=== PATIENT | male | born 1975 ===

== ENCOUNTER 2016-11-06 09:57 | Inpatient (IN) | payer OTHER ==
[2016-11-06 10:00] VITALS: BMI 25.7
--- NOTE | 2016-11-06 10:37 | ED PDOC ---
Lower Extremity Pain/Injury Time Seen by Provider: 11/06/16 10:19 Chief Complaint (Nursing): Lower Extremity Problem/Injury Chief Complaint (Provider): Left leg injury History Per: Patient Additional Complaint(s): 41-year-old male with no past medical history presents with pain to left knee, tib/fib, ankle and foot status post trip and fall. Patient denies head injury or loss of consciousness. He denies dizziness or syncope prior to fall. He states he is unable to bear weight on left lower extremity. Injury occurred just prior to arrival. Past Medical History Reviewed: Historical Data, Nursing Documentation, Vital Signs Vital Signs: Last Vital Signs Temp 98.0 F 11/06/16 09:59 Pulse 89 11/06/16 09:59 Resp 16 11/06/16 09:59 BP 133/110 H 11/06/16 09:59 Pulse Ox 100 11/06/16 09:59 - Medical History PMH: No Chronic Diseases - Surgical History Surgical History: No Surg Hx - Family History Family History: States: No Known Family Hx - Living Arrangements Living Arrangements: With Family - Social History Current smoker - smoking cessation education provided: Yes ("sometimes") Alcohol: None Drugs: Denies - Home Medications Home Medications: Ambulatory Orders Medication Instructions Recorded No Known Home Med [No Known Home 02/11/15 Med] - Allergies Allergies/Adverse Reactions: Allergies Allergy/AdvReac Type Severity Reaction Status Date / Time No Known Allergies Allergy Verified 11/06/16 10:13 Wells Criteria for PE - Wells Criteria for Pulmonary Embolism Clinical Signs and Symptoms of DVT: No P.E is #1 Diagnosis, or Equally Likely: No Heart Rate >100: No Immobilization at least 3 days;Surgery previous 4 weeks: No Previous, objectively diagnosed PE or DVT: No Hemoptysis: No Malignancy w/treatment within 6 months, or palliative: No Total Score: 0 Review of Systems ROS Statement: Except As Marked, All Systems Reviewed And Found Negative Musculoskeletal: Positive for: Other (left leg injury s/p accidental fall this morning) Physical Exam - Reviewed Nursing Documentation Reviewed: Yes Vital Signs Reviewed: Yes - Physical Exam Appears: Positive for: Well, Non-toxic, Uncomfortable (complains of pain) Eye Exam: Positive for: Normal appearance Cardiovascular/Chest: Positive for: Regular Rate, Rhythm Respiratory: Positive for: Normal Breath Sounds. Negative for: Respiratory Distress Extremity: Positive for: Other (Diffuse tenderness to left knee, tib-fib, ankle and foot region, decreased range of motion of left foot and ankle, no obvious bony deformity, normal distal sensation, palpable DP pulse) Neurologic/Psych: Positive for: Alert, Oriented - Laboratory Results Result Diagrams: 11/06/16 14:53 11/06/16 14:53 - ECG Interpretation Of ECG: NSR 84 bpm, no acute finding, reviewed by PA and ED attending O2 Sat by Pulse Oximetry: 100 Pulse Ox Interpretation: Normal - Other Rad Left foot and ankle x-rays X-Ray: Interpreted by Me, Viewed By Me X-Ray Interpretation: calcaneal fracture bedside chest X-Ray: Interpreted by Me, Viewed By Me X-Ray Interpretation: no acute finding Left tib/fib/knee/femur, hip and pelvis x-rays X-Ray: Interpreted by Me, Viewed By Me X-Ray Interpretation: no fx, no dis CT left foot X-Ray: Read By Radiologist X-Ray Interpretation: see below Medical Decision Making Medical Decision Makin41 year old male with left leg injury Plan: X-rays pelvis, left hip, femur, knee, tib/fib, ankle and foot PO motrin Labs CXR EKG Calcaneal fracture noted. Podiatry resident Lena Ochoa at bedside to see patient, she states to order CT of left foot. Patient will admitted and taken to OR tomorrow. Splint applied by podiatry resident. CT left foot: BONES: There is a comminuted fracture of the calcaneus with dominant fracture line extending from the inferior lateral calcaneal cortical margin superiorly and diverging into the middle and posterior subtalar facets. Talus and ankle mortise are intact. The distal fibula is intact. Unremarkable. No dislocation. No degenerative changes. Patient has no PMD, will be admitted to [facility] service, case was discussed with Dr. Marsh, resident. Patient is aware of and agrees with admission. Disposition - Clinical Impression Clinical Impression: Calcaneal fracture - Patient ED Disposition Is Patient to be Admitted: Yes - Disposition Disposition Time: 17:01 Condition: FAIR - Pt Status Changed To: Hospital Disposition Of: Inpatient - Admit Certification Admit to Inpatient:: After my assessment, the patient will require hospitalization for at least two midnights. This is because of the severity of symptoms shown, intensity of services needed, and/or the medical risk in this patient being treated as an outpatient. - POA Present On Arrival: None Results - Lab Results Lab Results: 11/06/16 14:53 WBC 14.8 H RBC 5.11 Hgb 15.6 Hct 47.0 MCV 92.0 MCH 30.5 MCHC 33.2 RDW 13.4 Plt Count 305 MPV 8.8 Neut % (Auto) 69.1 Lymph % (Auto) 22.1 [place] % (Auto) 7.0 Eos % (Auto) 1.2 Baso % (Auto) 0.6 Neut # 10.3 H Lymph # 3.3 [place] # 1.0 H Eos # 0.2 Baso # 0.1 PT 10.5 INR 1.01 APTT 25.7 Sodium 143 Potassium 4.0 Chloride 103 Carbon Dioxide 24 Anion Gap 20 BUN 17 Creatinine 0.8 Est GFR ( Amer) > 60 Est GFR (Non-Af Amer) > 60 Random Glucose 89 Calcium 9.7 Total Bilirubin 0.6 AST 36 ALT 40 Alkaline Phosphatase 88 Total Protein 8.3 H Albumin 4.5 Globulin 3.8 Albumin/Globulin Ratio 1.2
--- NOTE | 2016-11-06 12:28 | CP.PCM.CON ---
History of Present Illness - History of Present Illness History of Present Illness: 41 year old male with no PMHx presents to ED after he tripped and fell today. He states that he was walking and fell on the curb of the side walk. He was unable to walk afterwards and was taken to [facility] by ambulance. He denies hitting his head. He does have 10/10 pain on the left foot. He denies any n/v/ f/c/sob/cp. His wifes phone number is [phone] Past Patient History - Past Social History Alcohol: None Drugs: Denies - CARDIAC Hx Hypertension: No - PULMONARY Hx Tuberculosis: No - NEUROLOGICAL Hx Seizures: No - HEMATOLOGICAL/ONCOLOGICAL Hx Human Immunodeficiency Virus (HIV): No - GENITOURINARY/GYNECOLOGICAL Hx Sexually Transmitted Disorders: No - PSYCHIATRIC Hx Substance Use: No Meds Allergies/Adverse Reactions: Allergies Allergy/AdvReac Type Severity Reaction Status Date / Time No Known Allergies Allergy Verified 11/06/16 10:13 Physical Exam - Constitutional Appears: Well, Non-toxic, No Acute Distress - Extremities Exam Additional comments: Vasc: DP and PT pulses palpable b/l. CFT < 3 seconds to all digits b/l. SKin temperature warm to warm from proximal to distal b/l. Neuro: Gross sensation intact b/l. Derm: Ecchymosis noted to the medial aspect of the left calcaneus. Non-pitting edema noted to the left foot and ankle. No open lesions noted. Ortho:Pain on palpation of the left calcaneus. Patient is able to wiggle toes and DF and PF ankle - Neurological Exam Neurological exam: Alert, Oriented x3 - Psychiatric Exam Psychiatric exam: Normal Affect, Normal Mood Results - Vital Signs Recent Vital Signs: Last Vital Signs Temp 98.0 F 11/06/16 09:59 Pulse 89 11/06/16 09:59 Resp 16 11/06/16 09:59 BP 133/110 H 11/06/16 09:59 Pulse Ox 100 11/06/16 10:39 - Labs Result Diagrams: 11/06/16 14:53 11/06/16 14:53 Assessment & Plan - Assessment and Plan (Free Text) Assessment: 41 year old male with left calcaneal fracture due to trauma Plan: Patient examined and evaluate Chart and vitals reviewed Discussed in detail with attending, Dr. Cordero Radiographs review-calcaneal fracture noted CT reviewed- communited fracture of the calcaneus noted Patient placed in modified brito compressive dressing with posterior splint Patient to keep dressing clean, dry, intac Patient to remain non-WB to LLE with crutches Lab, EKG, chest xray obtained- medical optimization in chart Patient to be NPO 8 hours prior to surgery Patient to OR tomorrow night around 5:30 for add on case, ORIF Left calcaneus Pain medication per primary team Podiatry will continue to follow patient while in house
--- NOTE | 2016-11-06 14:20 | CT ---
PROCEDURE: CT of the Left ankle. HISTORY: trauma, assess calcaneal fracture COMPARISON: None available. None TECHNIQUE: Contiguous axial images of the left ankle were obtained. Coronal and sagittal reformats were generated. Radiation dose [address] exam was performed using one or more of the following dose reduction techniques: Automated exposure control, adjustment of the mA and/or kV according to patient size, and/or use of iterative reconstruction technique. FINDINGS: BONES: There is a comminuted fracture of the calcaneus with dominant fracture line extending from the inferior lateral calcaneal cortical margin superiorly and diverging into the middle and posterior subtalar facets. Talus and ankle mortise are intact. The distal fibula is intact. Unremarkable. No dislocation. No degenerative changes. SOFT TISSUES: Unremarkable. IMPRESSION: Comminuted fracture of the calcaneus.
[2016-11-06 15:29] LABS: BASO # 0.1 K/uL (0.0-0.2); BASO % 0.6 % (0.0-2.0); EOS # 0.2 K/uL (0.0-0.7); EOS % 1.2 % (0.0-4.0); LYMPH # 3.3 K/uL (1.0-4.3); LYMPH % 22.1 % (20.0-40.0); MEAN CORPUSCULAR HEMOGLOBIN 30.5 pg (27.0-31.0); MEAN CORPUSCULAR HGB CONC 33.2 g/dL (33.0-37.0); MEAN PLATELET VOLUME 8.8 fl (7.2-11.7); NEUT # 10.3 K/uL (1.8-7.0); NEUT % 69.1 % (50.0-75.0); RED CELL DISTRIBUTION WIDTH 13.4 % (11.5-14.5); WHITE BLOOD COUNT 14.8 K/uL (4.8-10.8)
[2016-11-06 15:43] LABS: PARTIAL THROMBOPLASTIN TIME 25.7 SECONDS (23.3-32.5)
[2016-11-06 16:15] LABS: ALB/GLOB RATIO 1.2 (1.0-2.1); ALKALINE PHOSPHATASE 88 U/L (38-126); ALT/SGPT 40 U/L (21-72); AST/SGOT 36 U/L (17-59); BILIRUBIN,TOTAL 0.6 mg/dl (0.2-1.3); BLOOD UREA NITROGEN 17 mg/dl (9-20); CALCIUM 9.7 mg/dL (8.4-10.2); CARBON DIOXIDE 24 mmol/L (22-30); CHLORIDE 103 mmol/L (98-107); GFR AFRICAN-AMERICAN > 60; GLUCOSE,RANDOM 89 mg/dL (75-110); SODIUM 143 mmol/l (132-148); TOTAL PROTEIN 8.3 G/DL (6.3-8.2)
--- NOTE | 2016-11-06 16:23 | RAD ---
PROCEDURE: Left Foot Radiographs. HISTORY: trauma COMPARISON: None. FINDINGS: BONES: Complex, comminuted calcaneal fracture. Fracture fragments is the plantar and ventral aspects, articular surfaces identified. JOINTS: Normal. SOFT TISSUES: Soft tissue swelling attests to the acuity of the fracture. OTHER FINDINGS: None. IMPRESSION: Acute, comminuted left calcaneal fracture.
--- NOTE | 2016-11-06 16:35 | RAD ---
PROCEDURE: Left Ankle Radiographs. HISTORY: trauma COMPARISON: November 06, 2016. CT lower extremity. Summary of findings on the comparison examination: Comminuted fracture of the calcaneus. FINDINGS: BONES: Calcaneal fracture. The fracture is incompletely characterized, displaying comminution and intra-articular extension. JOINTS: Normal. No osteoarthritis. Ankle mortise maintained. Talar dome intact SOFT TISSUES: Normal. OTHER FINDINGS: None. IMPRESSION: Comminuted fracture of the calcaneus.
--- NOTE | 2016-11-06 16:36 | RAD ---
PROCEDURE: Left tibia and fibula HISTORY: trauma COMPARISON: November 06, 2016. TECHNIQUE: Standard protocol for this study/examination. FINDINGS: Unremarkable tibia and fibula. Documentation of known calcaneal fracture. IMPRESSION: No acute findings related to/accounting for the clinical presentation. Incidental finding(s): Incomplete visualization common characterisation known common documented comminuted calcaneal fracture. Concordant results with the preliminary interpretation rendered by the emergency department physician procedure.
--- NOTE | 2016-11-06 16:39 | RAD ---
PROCEDURE: Left Knee Radiographs. HISTORY: Posttraumatic pain COMPARISON: None. FINDINGS: BONES: Normal. No fracture. JOINTS: Normal. No osteoarthritis. JOINT EFFUSION: None. OTHER FINDINGS: None. IMPRESSION: No acute findings related to/accounting for the clinical presentation. Concordant results with the preliminary interpretation rendered by the emergency department physician procedure.
--- NOTE | 2016-11-06 16:43 | CP.PCM.HP ---
History of Present Illness - History of Present Illness History of Present Illness: Patient 41 y/o male no significant pmhx of came to ER after he fall while he was walking on sidewalk nd twisted her left foot . patient started c/o of pain 03/06 in calcaneous area. 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 ER : Ct of left mali multiplr commute calcaneous Fx Motrin 600 mg po once cbc. cmp CXT EKG PMHx: none PSHx: none ALL: none MEDs: none Present on Admission - Present on Admission Any Indicators Present on Admission: No Review of Systems - Review of Systems Review of Systems: as per HPI Past Patient History - Past Social History Alcohol: None Drugs: Denies - CARDIAC Hx Hypertension: No - PULMONARY Hx Tuberculosis: No - NEUROLOGICAL Hx Seizures: No - HEMATOLOGICAL/ONCOLOGICAL Hx Human Immunodeficiency Virus (HIV): No - GENITOURINARY/GYNECOLOGICAL Hx Sexually Transmitted Disorders: No - PSYCHIATRIC Hx Substance Use: No Meds Allergies/Adverse Reactions: Allergies Allergy/AdvReac Type Severity Reaction Status Date / Time No Known Allergies Allergy Verified 11/06/16 10:13 Physical Exam - Constitutional Appears: No Acute Distress - Head Exam Head Exam: NORMAL INSPECTION - Eye Exam Eye Exam: Normal appearance - ENT Exam ENT Exam: Mucous Membranes Moist - Respiratory Exam Respiratory Exam: Clear to Auscultation Bilateral - Cardiovascular Exam Cardiovascular Exam: REGULAR RHYTHM, RRR, +S1, +S2. absent: JVD - GI/Abdominal Exam GI & Abdominal Exam: Normal Bowel Sounds, Soft - Extremities Exam Extremities exam: Positive for: normal capillary refill, pedal pulses present. Negative for: calf tenderness Additional comments: left leg immobilized - Neurological Exam Neurological exam: Alert, Oriented x3 - Psychiatric Exam Psychiatric exam: Normal Affect, Normal Mood - Skin Skin Exam: Normal Color Results - Vital Signs Recent Vital Signs: Last Vital Signs Temp 98.0 F 11/06/16 09:59 Pulse 81 11/06/16 15:40 Resp 18 11/06/16 15:40 BP 136/90 11/06/16 15:40 Pulse Ox 100 11/06/16 15:42 - Labs Result Diagrams: 11/06/16 14:53 11/06/16 14:53 Labs: Laboratory Results - last 24 hr 11/06/16 14:53 WBC 14.8 H RBC 5.11 Hgb 15.6 Hct 47.0 MCV 92.0 MCH 30.5 MCHC 33.2 RDW 13.4 Plt Count 305 MPV 8.8 Neut % (Auto) 69.1 Lymph % (Auto) 22.1 [place] % (Auto) 7.0 Eos % (Auto) 1.2 Baso % (Auto) 0.6 Neut # 10.3 H Lymph # 3.3 [place] # 1.0 H Eos # 0.2 Baso # 0.1 PT 10.5 INR 1.01 APTT 25.7 Sodium 143 Potassium 4.0 Chloride 103 Carbon Dioxide 24 Anion Gap 20 BUN 17 Creatinine 0.8 Est GFR ( Amer) > 60 Est GFR (Non-Af Amer) > 60 Random Glucose 89 Calcium 9.7 Total Bilirubin 0.6 AST 36 ALT 40 Alkaline Phosphatase 88 Total Protein 8.3 H Albumin 4.5 Globulin 3.8 Albumin/Globulin Ratio 1.2 Assessment & Plan (1) Calcaneal fracture Assessment and Plan: Admit to med/surg VS q shift regular diet percocet 5/325 mg PO q 6hr if severe pain Manual Plate Filler consulted CT: Comminuted fracture of the calcaneus. OR tomorrow at 5 :00pm NPO after breakfast tomorrow CXR reviewed : No active disease cbc/ CMp reviewed Patient is optimized for SX . Status: Acute (2) DVT prophylaxis Assessment and Plan: SCD Status: Acute
--- NOTE | 2016-11-06 16:46 | RAD ---
HISTORY: Medical clearance COMPARISON: No prior. FINDINGS: LUNGS: No active pulmonary disease. PLEURA: No significant pleural effusion identified, no pneumothorax apparent. CARDIOVASCULAR: No radiographic findings to suggest acute or significant cardiovascular disease. OSSEOUS STRUCTURES: No significant abnormalities. VISUALIZED UPPER ABDOMEN: Normal. OTHER FINDINGS: None. IMPRESSION: No active disease.
--- NOTE | 2016-11-06 16:55 | RAD ---
PROCEDURE: Pelvis, left hip HISTORY: trauma COMPARISON: None TECHNIQUE: Standard protocol for this study/examination. FINDINGS: There are no osseous abnormalities to suggest fracture. The pelvic ring is intact. Preserved femoral-acetabular relationship. Negative study for protrusio, subluxation or dislocation. Degenerative changes: None. IMPRESSION: No acute findings related to/accounting for the clinical presentation.
--- NOTE | 2016-11-06 16:56 | RAD ---
PROCEDURE: Left femur HISTORY: trauma COMPARISON: November 06, 2016. TECHNIQUE: Standard protocol for this study/examination. FINDINGS: No significant/acute osseous, articular or soft tissue abnormalities. IMPRESSION: No significant or acute findings to account for/ related to the clinical presentation.
--- NOTE | 2016-11-06 21:19 | CARD ---
APPROVED REPORT EKG Measurement Heart [id number] <Conclusion> Normal sinus rhythm Normal ECG
[2016-11-07] MEDS: Sodium Chloride 0.9% 1,000 ML IV SCH ×2 (06:42→16:36)
--- NOTE | 2016-11-07 07:54 | CP.PCM.PN ---
Subjective - Date & Time of Evaluation Date of Evaluation: 11/07/16 Time of Evaluation: 07:54 - Subjective Subjective: 41 year old male was seen resting comfortably at bedside regarding left calcaneus fracture. Patient is AAOx3, NAD. He states that he is having some pain and requests some pain medication. He is aware he is going for surgery this evening around 5:30 pm. He states he is aware he needs to be NPO after 9 am. Objective - Vital Signs/Intake and Output Vital Signs (last 24 hours): Temp Pulse Resp BP Pulse Ox 98.0 F 62 20 136/90 100 11/06/16 09:59 11/06/16 16:27 11/06/16 16:27 11/06/16 15:40 11/06/16 17:03 - Medications Medications: Current Medications Sodium Chloride (Sodium Chloride 0.9%) 1,000 mls @ 100 mls/hr IV .Q10H ESTEFANY Last Admin: 11/07/16 06:42 Dose: 100 mls/hr Oxycodone/Acetaminophen (Percocet 5/325 Mg Tab) 1 tab PO Q6 PRN PRN Reason: Pain, moderate (4-7) Stop: 11/09/16 16:27 - Labs Labs: 11/06/16 14:53 11/06/16 14:53 PT 10.5 SECONDS (9.6-11.2) 11/06/16 14:53 INR 1.01 (0.92-1.08) 11/06/16 14:53 APTT 25.7 SECONDS (23.3-32.5) 11/06/16 14:53 - Constitutional Appears: Well, Non-toxic, No Acute Distress - Extremities Exam Additional comments: CFT < 3 seconds to all digits on the left Posterior splint C/D/I to LLE - Neurological Exam Neurological Exam: Alert, Awake, Oriented x3 - Psychiatric Exam Psychiatric exam: Normal Affect, Normal Mood Assessment and Plan - Assessment and Plan (Free Text) Assessment: 41 year old male with left calcaneal fracture due to trauma Plan: Patient examined and evaluated Chart, labs, vitals reviewed Discussed in detail with attending, Dr. Cordero Medical optimization in chart To OR tonight at 5:30 pm NPO after 9 am Patient was explained procedure and post-op course No guarantees were made Patient understands risk, benefits, complications of procedure
[2016-11-07] MEDS: Oxycodone/Acetaminophen 5/325 mg Tab PO PRN (08:40)
--- NOTE | 2016-11-07 09:31 | CP.PCM.PN ---
Subjective - Date & Time of Evaluation Date of Evaluation: 11/07/16 Time of Evaluation: 07:10 - Subjective Subjective: The patient is a 41 y/o man w/ no significant pmhx presented to ED after he fell while walking on sidewalk and twisted his left foot. The patient was seen this morning. There are no acute events overnight. The patient is not in acute distress. The patient's pain is controlled with medication, PO percocet. The patient is aware that surgery will be at 17:30 today and to not eat anything after 09:00 this morning. The patient's left leg is wrapped in cast. The patient denies headaches, dizziness, chest pain, dyspnea, abdominal pain, nausea, vomiting, diarrhea, dysuria, and fevers. Objective - Vital Signs/Intake and Output Vital Signs (last 24 hours): Temp Pulse Resp BP Pulse Ox 98.2 F 79 20 134/86 96 11/07/16 08:34 11/07/16 08:34 11/07/16 08:34 11/07/16 08:34 11/07/16 08:34 - Medications Medications: Current Medications Sodium Chloride (Sodium Chloride 0.9%) 1,000 mls @ 100 mls/hr IV .Q10H ESTEFANY Last Admin: 11/07/16 06:42 Dose: 100 mls/hr Oxycodone/Acetaminophen (Percocet 5/325 Mg Tab) 1 tab PO Q6 PRN PRN Reason: Pain, moderate (4-7) Stop: 11/09/16 16:27 Last Admin: 11/07/16 08:40 Dose: 1 tab - Labs Labs: 11/06/16 14:53 11/06/16 14:53 PT 10.5 SECONDS (9.6-11.2) 11/06/16 14:53 INR 1.01 (0.92-1.08) 11/06/16 14:53 APTT 25.7 SECONDS (23.3-32.5) 11/06/16 14:53 - Constitutional Appears: No Acute Distress - Head Exam Head Exam: ATRAUMATIC, NORMOCEPHALIC - Eye Exam Eye Exam: EOMI Pupil Exam: PERRL - ENT Exam ENT Exam: Mucous Membranes Moist - Respiratory Exam Respiratory Exam: Clear to Ausculation Bilateral. absent: Accessory Muscle Use , Chest Wall Tenderness, Decreased Breath Sounds, Prolonged Expiratory Phase, Rales, Rhonchi, Wheezes, Respiratory Distress, Stridor - Cardiovascular Exam Cardiovascular Exam: REGULAR RHYTHM. absent: Tachycardia - GI/Abdominal Exam GI & Abdominal Exam: Soft, Normal Bowel Sounds. absent: Distended, Tenderness - Extremities Exam Extremities Exam: Normal Capillary Refill, Tenderness. absent: Calf Tenderness Additional comments: left lower leg immobilized in cast - Neurological Exam Neurological Exam: Alert, Awake, Oriented x3 - Skin Skin Exam: Dry, Intact, Normal Color, Warm Assessment and Plan - Assessment and Plan (Free Text) Assessment: The patient is a 41 y/o man w/ no significant pmhx presented to ED after he fell while walking on sidewalk and twisted his left foot Plan: (1) Calcaneal fracture - VS Q shift - NPO after 9 AM - IVF NS 100 mL/hr - OR today at 5 :00pm - percocet 5/325 mg PO q 6hr if severe pain - Podiatry consulted, recommendations appreciated - CT: Comminuted fracture of the calcaneus. - CXR: No active disease - CBC: 14.8>15.6/47.0<305 - CMP: 143/4.0, 103/24, 17/0.8, glucose 89, CA2+ 9.7 - Patient is optimized and has no contraindication for surgery (2) DVT prophylaxis - SCD
[2016-11-07] MEDS ORDERED: ceFAZolin 1 GM in Sodium Chloride 0.9% 100 ML IVPB ONE (17:18)
[2016-11-07] MEDS ORDERED: Propofol 10 mg/ml Inj (20 ML) ONE (18:27)
[2016-11-07] MEDS ORDERED: Succinylcholine 200 mg/10 ml Inj IV ONE (18:29)
[2016-11-07] MEDS ORDERED: Bupivacaine 0.5% Inj(30mL) ONE (19:55)
[2016-11-07] MEDS ORDERED: Lactated Ringer's 1,000 ML IV ONE ×3 (20:43→21:21)
[2016-11-07] MEDS ORDERED: HYDROmorphone 0.5 mg/0.5 ml ISec IVP PRN (21:09)
[2016-11-07] MEDS ORDERED: Lactated Ringer's 1,000 ML IV SCH (21:15)
--- NOTE | 2016-11-07 22:00 | PCM.SURG1 ---
Surgeon's Initial Post Op Note - Surgeon's Notes Surgeon: Dr. Cordero DPM, Dr. Ramos DPM Restaurant Area Director: Dr. Joaquin DPM PGY-3, Dr. Simmons DPM PGY-3, Dr. Peña DPM PGY-3 Type of Anesthesia: General Endo Anesthesia Administered By: Dr. Fisher Pre-Operative Diagnosis: left displace and communited calcaneal fracture Operative Findings: see dictation. M:2-0,3-0,4-0 vicryl, 3-0 nylon, synthes 28 , 30 x 3.5 mm cannulated screw,2.7 mm VA LCP calcaneau plate small left, 2.7 mm 20,22,24,26,18 VA locking screw. I:36 mL 0.5% marcaine plain Post-Operative Diagnosis: same Operation Performed: ORIF left calcaneal displaced and communited fracture Specimen/Specimens Removed: none Estimated Blood Loss: EBL {In ML}: 10 Blood Products Given: N/A Drains Used: No Drains Post-Op Condition: Good Date of Surgery/Procedure: 11/07/16 Time of Surgery/Procedure: 17:00
[2016-11-08] MEDS: Sodium Chloride 0.9% 1,000 ML IV SCH (02:00)
[2016-11-08] MEDS: ceFAZolin 1 GM in Sodium Chloride 0.9% 100 ML IVPB SCH ×2 (03:28→11:30)
--- NOTE | 2016-11-08 06:57 | CP.PCM.PN ---
Subjective - Date & Time of Evaluation Date of Evaluation: 11/08/16 Time of Evaluation: 06:57 - Subjective Subjective: 41 year old male was seen resting comfortably at bedside 1 day s/p left calceaneal ORIF. Patient is AAOx3, NAD. Dressing is clean, dry, intact to left lower extremity. Denies n/v/f/c/sob/cp. Objective - Vital Signs/Intake and Output Vital Signs (last 24 hours): Temp Pulse Resp BP Pulse Ox 98.4 F 65 14 137/87 99 11/08/16 01:30 11/08/16 01:30 11/08/16 01:30 11/08/16 01:30 11/08/16 01:30 Intake and Output: 11/07/16 11/08/16 18:59 06:59 Intake Total 1000 Balance 1000 - Medications Medications: Current Medications Hydromorphone HCl (Dilaudid 0.2 Mg/Ml Stations Superintendent) 0 mg IV PRN PRN; Protocol PRN Reason: Pain, moderate (4-7) Last Admin: 11/07/16 22:45 Dose: 6 mg Sodium Chloride (Sodium Chloride 0.9%) 1,000 mls @ 100 mls/hr IV .Q10H [facility] Last Admin: 11/08/16 02:00 Dose: Not Given Lactated Ringer's (Lactated Ringer's) 1,000 mls @ 125 mls/hr IV .Q8H [facility] Last Admin: 11/07/16 22:00 Dose: 125 mls/hr Cefazolin Sodium 1 gm/ Sodium (Chloride) 100 mls @ 100 mls/hr IVPB Q8 ESTEFANY Stop: 11/08/16 09:59 Last Admin: 11/08/16 03:28 Dose: 100 mls/hr Ondansetron HCl (Zofran Inj) 4 mg IVP Q6 PRN PRN Reason: Nausea/Vomiting Last Admin: 11/08/16 03:39 Dose: 4 mg Oxycodone/Acetaminophen (Percocet 5/325 Mg Tab) 1 tab PO Q6 PRN PRN Reason: Pain, moderate (4-7) Stop: 11/09/16 16:27 Last Admin: 11/07/16 08:40 Dose: 1 tab - Labs Labs: 11/06/16 14:53 11/06/16 14:53 PT 10.5 SECONDS (9.6-11.2) 11/06/16 14:53 INR 1.01 (0.92-1.08) 11/06/16 14:53 APTT 25.7 SECONDS (23.3-32.5) 11/06/16 14:53 - Constitutional Appears: Well, Non-toxic, No Acute Distress - Extremities Exam Additional comments: CFT < 3 seconds to all digits on the left Posterior splint clean, dry, intact to left lower extremity - Neurological Exam Neurological Exam: Alert, Awake, Oriented x3 - Psychiatric Exam Psychiatric exam: Normal Affect, Normal Mood Assessment and Plan - Assessment and Plan (Free Text) Assessment: 41 year old male 1 day s/p left calcaneal ORIF Plan: Patient examined and evaluate Chart and vitals reviewed Discussed in detail with attending, Dr. Cordero Continue pain medication per primary team Continue incentive spirometry Rx in chart for keflex and percocet for when patient is discharged Dressing left clean, dry, intact Radiographs ordered Podiatry will continue to follow patient while in house
[2016-11-08 07:00] LABS: BLOOD UREA NITROGEN 13 mg/dl (9-20); CALCIUM 8.9 mg/dL (8.4-10.2); CARBON DIOXIDE 25 mmol/L (22-30); CHLORIDE 103 mmol/L (98-107); GFR AFRICAN-AMERICAN > 60; GLUCOSE,RANDOM 136 mg/dL (75-110); POTASSIUM 4.2 MMOL/L (3.6-5.0); SODIUM 142 mmol/l (132-148)
[2016-11-08 07:01] LABS: HEMATOCRIT 40.1 % (35.0-51.0); MEAN CORPUSCULAR HGB CONC 34.1 g/dL (33.0-37.0); RED CELL DISTRIBUTION WIDTH 12.8 % (11.5-14.5); WHITE BLOOD COUNT 18.9 K/uL (4.8-10.8)
--- NOTE | 2016-11-08 11:11 | CP.PCM.PN ---
Subjective - Date & Time of Evaluation Date of Evaluation: 11/08/16 Time of Evaluation: 07:25 - Subjective Subjective: The patient is a 41 y/o man w/ no significant pmhx presented to ED after he fell while walking on sidewalk and twisted his left foot. S/P ORIF left calcaneal displaced and communited fracture post-op day#1. The patient was seen this morning. There are no acute events overnight. The patient is not in acute distress. The patient's pain is controlled currently with dilaudid 0.2 TRAINING EXECUTIVE Q8min prn. The patient tolerated the procedure well with no complications and is recovering appropriately. The patient was seen by physical therapy before surgery and will be seen today for further treatment. The patient's left leg is wrapped in dressing clean, dry, and intact. The patient is afebrile, tolerating PO regular diet, and voiding. The patient has no drains attached. The patient denies headaches, dizziness, chest pain, dyspnea, abdominal pain, nausea, vomiting, diarrhea, dysuria, and fevers. REAL ESTATE ANALYST called 12:30 due to tachycardia. Given adenosine 6mg x1 and 12 mg x2 with no break in tachycardia. EKG showed afib and started on cardizem 17.5 mg bolus over 2 minutes with drip 5mg/hr. Labs drawn and transferred to Tele. Objective - Vital Signs/Intake and Output Vital Signs (last 24 hours): Temp Pulse Resp BP Pulse Ox 98.5 F 72 18 131/78 98 11/08/16 08:26 11/08/16 08:26 11/08/16 08:26 11/08/16 08:26 11/08/16 08:26 Intake and Output: 11/08/16 11/08/16 06:59 18:59 Intake Total 1000 Balance 1000 - Medications Medications: Current Medications Hydromorphone HCl (Dilaudid 0.2 Mg/Ml Gas Appliance Servicer Helper) 0 mg IV PRN PRN; Protocol PRN Reason: Pain, moderate (4-7) Last Admin: 11/07/16 22:45 Dose: 6 mg Sodium Chloride (Sodium Chloride 0.9%) 1,000 mls @ 100 mls/hr IV .Q10H ESTEFANY Last Admin: 11/08/16 02:00 Dose: Not Given Lactated Ringer's (Lactated Ringer's) 1,000 mls @ 125 mls/hr IV .Q8H ESTEFANY Last Admin: 11/07/16 22:00 Dose: 125 mls/hr Ondansetron HCl (Zofran Inj) 4 mg IVP Q6 PRN PRN Reason: Nausea/Vomiting Last Admin: 11/08/16 09:36 Dose: 4 mg Oxycodone/Acetaminophen (Percocet 5/325 Mg Tab) 1 tab PO Q6 PRN PRN Reason: Pain, moderate (4-7) Stop: 11/09/16 16:27 Last Admin: 11/07/16 08:40 Dose: 1 tab - Labs Labs: 11/08/16 06:43 11/08/16 06:43 PT 10.5 SECONDS (9.6-11.2) 11/06/16 14:53 INR 1.01 (0.92-1.08) 11/06/16 14:53 APTT 25.7 SECONDS (23.3-32.5) 11/06/16 14:53 - Constitutional Appears: No Acute Distress - Head Exam Head Exam: ATRAUMATIC, NORMOCEPHALIC - Eye Exam Eye Exam: EOMI Pupil Exam: PERRL - ENT Exam ENT Exam: Mucous Membranes Moist - Respiratory Exam Respiratory Exam: Clear to Ausculation Bilateral, NORMAL BREATHING PATTERN. absent: Accessory Muscle Use, Chest Wall Tenderness, Decreased Breath Sounds, Prolonged Expiratory Phase, Rales, Rhonchi, Wheezes, Respiratory Distress, Stridor - Cardiovascular Exam Cardiovascular Exam: REGULAR RHYTHM. absent: Tachycardia - GI/Abdominal Exam GI & Abdominal Exam: Soft, Normal Bowel Sounds. absent: Distended, Tenderness - Extremities Exam Extremities Exam: absent: Calf Tenderness Additional comments: Posterior splint clean, dry, intact to left lower extremity - Neurological Exam Neurological Exam: Alert, Awake, Oriented x3 - Skin Skin Exam: Dry, Intact, Normal Color, Warm Assessment and Plan - Assessment and Plan (Free Text) Assessment: The patient is a 41 y/o man w/ no significant pmhx presented to ED after he fell while walking on sidewalk and twisted his left foot. S/P ORIF left calcaneal displaced and communited fracture post-op day #1. Plan: (1) Calcaneal fracture - s/p left calceaneal ORIF - VS Q shift - IVF LR 125 mL/hr - Podiatry consulted, recommendations appreciated - CT: Comminuted fracture of the calcaneus. - CXR: No active disease - CBC: 18.9>13.7/40.1<286 - CMP: 142/4.2, 103/25, 13/0.7, glucose 136, CA2+ 8.9 - follow up ankle x-ray (2) Supraventricular tachycardia - REAL ESTATE ANALYST called around 12:30 11/08/2016 - given adenosine 6mg x1 and 12 mg x2 with no break in tachycardia - EKG showed afib - started on cardizem 17.5 mg bolus over 2 minutes with drip 5mg/hr - follow up echo and CT angio chest PE protocol - follow up CBC, CMP, Mag, Phos, TSH, coags, and troponin (3) Pain management - dilaudid 0.2 mg TRAINING EXECUTIVE Q8min - percocet PO Q6h prn (4) FEN - regular diet - zofran Q6h prn for nausea (5) DVT prophylaxis - SCD - lovenox 40 mg SC daily
[2016-11-08] MEDS ORDERED: Enoxaparin 40 mg Syringe SC SCH (11:15)
--- NOTE | 2016-11-08 12:40 | RAD ---
PROCEDURE: Left Ankle Radiographs. HISTORY: s/p left foot surgery COMPARISON: 11/06/2016 FINDINGS: BONES: Status post open reduction and internal fixation of and oblique nondisplaced fracture in the calcaneus. Bone alignment is normal. JOINTS: The joint spaces are preserved. SOFT TISSUES: There is moderate periarticular soft tissue swelling. OTHER FINDINGS: None. IMPRESSION: Status post ORIF nondisplaced calcaneal fracture.
[2016-11-08 13:04] LABS: BASO # 0.1 K/uL (0.0-0.2); BASO % 0.7 % (0.0-2.0); EOS % 0.1 % (0.0-4.0); HEMATOCRIT 43.1 % (35.0-51.0); LYMPH # 2.3 K/uL (1.0-4.3); LYMPH % 11.3 % (20.0-40.0); MEAN CELL VOLUME 91.1 fl (80.0-94.0); MEAN CORPUSCULAR HEMOGLOBIN 30.8 pg (27.0-31.0); MEAN CORPUSCULAR HGB CONC 33.8 g/dL (33.0-37.0); MONO # 1.4 K/uL (0.0-0.8); MONO % 6.6 % (0.0-10.0); NEUT # 16.8 K/uL (1.8-7.0); NEUT % 81.3 % (50.0-75.0); RED CELL DISTRIBUTION WIDTH 12.9 % (11.5-14.5); WHITE BLOOD COUNT 20.7 K/uL (4.8-10.8)
[2016-11-08 13:15] LABS: ALB/GLOB RATIO 1.2 (1.0-2.1); ALKALINE PHOSPHATASE 76 U/L (38-126); ALT/SGPT 40 U/L (21-72); AST/SGOT 32 U/L (17-59); BILIRUBIN,TOTAL 0.6 mg/dl (0.2-1.3); BLOOD UREA NITROGEN 9 mg/dl (9-20); CALCIUM 9.2 mg/dL (8.4-10.2); CARBON DIOXIDE 23 mmol/L (22-30); CHLORIDE 103 mmol/L (98-107); GFR AFRICAN-AMERICAN > 60; GLUCOSE,RANDOM 147 mg/dL (75-110); MAGNESIUM 2.3 MG/DL (1.6-2.3); PHOSPHOROUS 2.8 mg/dl (2.5-4.5); POTASSIUM 3.7 MMOL/L (3.6-5.0); SODIUM 143 mmol/l (132-148); TOTAL PROTEIN 7.5 G/DL (6.3-8.2)
--- NOTE | 2016-11-08 13:18 | PCM.RRTMUL ---
PRINT LINE TAILER Nurse Assessment - Vital Signs Blood Pressure:: 131/78 Pulse Rate:: 72 Respiratory Rate:: 18 Temperature:: 98.5 F Summary - Summary of Event Summary of Event: S: 41 y/o male with an otherwise unremarkable PMHx admitted for calcaneal fracture, s/p ORIF POD#1 had PRINT LINE TAILER called due to tachycardia. Heart rate was found to be in the upper 170s and PRINT LINE TAILER was called. Pt had no complaints at the time and just reported feeling palpitations. He denied any chest pain, shortness of breath, nausea, vomiting, diaphoresis. O: BP: 126/76 HR: 170-185 RR: 16 Temp: 98.5 O2sat: 99% on NC Gen: AAOx3, nondiaphoretic, calm, NAD. CVS: irregular, tachycardia, No MRG Lungs: CTA A&P, B/L, No WRR During PRINT LINE TAILER: -6mg Adenosine IVP, without change in HR -12-lead EKG: Atrial fibrillation with SVT -12mg Adenosine IVP, with minor break, down to 120s but return to 170-180s -pt attempted valsalva without success -12mg Adenosine IVP, without change in HR -Cardizem 17.5 IV over two minutes, with minor decrease in HR to 140-150s A&P: 41 y/o male s/p ORIF POD#1, with new onset Afib and SVT. Labs ordered: CBC CMP TSH/T4 Lactic Acid PT/INR Mag/Phos Troponin Imagin lead EKG ECHO CT angio Vitals at end of PRINT LINE TAILER: BP: 146/78, HR: 154 Temp: 98.5 O2 Sat: 99% on NC, RR: 16 Pt was hemodynamically stable, responsive, and moved to Tele on Cardizem drip @ 5mg/hr
--- NOTE | 2016-11-08 13:19 | RAD ---
PROCEDURE: Fluoroscopy up to 1 hr. HISTORY: FX COMPARISON: None TECHNIQUE: Standard protocol for this study/examination. FINDINGS: Submitted images from the current procedure: 11.0 IMPRESSION: Less than 1 hr fluoroscopic time utilized during performance of the procedure.
[2016-11-08] MEDS ORDERED: Sodium Chloride 0.9% 50 ML IV ONE (15:25)
[2016-11-08] MEDS ORDERED: Iodixanol 320 MG/ML 100 ML BOTTLE IV ONE (15:25)
--- NOTE | 2016-11-08 16:46 | CARD ---
APPROVED REPORT EKG Measurement Heart [id number] <Conclusion> Atrial fibrillation with rapid ventricular response Nonspecific ST and T wave abnormality Abnormal ECG
--- NOTE | 2016-11-08 16:46 | CARD ---
APPROVED REPORT EXAM: Two-dimensional and M-mode echocardiogram with Doppler and color Doppler. Other Information Quality : GoodRhythm : Atrial Fibrillation INDICATION Atrial Fibrillation 2D DIMENSIONS IVSd1.12 (0.7-1.1cm)LVDd3.43 (3.9-5.9cm) LVOT Diameter2.01 (1.8-2.4cm)PWd1.23 (0.7-1.1cm) IVSs1.73 (0.8-1.2cm)LVDs1.90 (2.5-4.0cm) FS (%) 44.5 %PWs1.31 (0.8-1.2cm) LVEF (%)55.0 (>50%) M-Mode DIMENSIONS Left Atrium (MM)3.47 (2.5-4.0cm)IVSd1.29 (0.7-1.1cm) Aortic Root3.14 (2.2-3.7cm)LVDd3.47 (4.0-5.6cm) Aortic Cusp Exc.2.03 (1.5-2.0cm)PWd1.21 (0.7-1.1cm) IVSs1.49 cmFS (%) 33 % LVDs2.32 (2.0-3.8cm)PWs1.67 cm Mitral Valve E/A ratio0.0 TDI E/Lateral E'0.0E/Medial E'0.0 Pulmonary Valve PV Peak Ithndmlx564.7cm/s LEFT VENTRICLE The left ventricle is normal size. There is borderline concentric left ventricular hypertrophy. The left ventricular function is normal. The left ventricular ejection fraction is within the normal range. There is normal LV segmental wall motion. Patient is in A Fib RIGHT VENTRICLE The right ventricle is normal size. There is normal right ventricular wall thickness. The right ventricular systolic function is normal. ATRIA The left atrium size is normal. The right atrium size is normal. AORTIC VALVE The aortic valve is mildly thickened. There is trace aortic regurgitation. There is no aortic valvular stenosis. MITRAL VALVE The mitral valve is mildly thickened. There is no mitral valve stenosis. Mitral regurgitation is trace. TRICUSPID VALVE The tricuspid valve is normal in structure and function. There is no tricuspid valve regurgitation noted. PULMONIC VALVE The pulmonary valve is normal in structure and function. There is no pulmonic valvular regurgitation. GREAT VESSELS The aortic root is normal in size. The IVC was not visualized. PERICARDIAL EFFUSION The pericardium appears normal. <Conclusion> The left ventricle is normal size. There is borderline concentric left ventricular hypertrophy. The left ventricular function is normal. The left ventricular ejection fraction is within the normal range. There is normal LV segmental wall motion.
[2016-11-08] MEDS ORDERED: Digoxin 500 mcg/2ml (0.5 mg/2ml) Inj IVP ONE (17:21)
[2016-11-08 18:03] VITALS: PULSE 130
--- NOTE | 2016-11-08 19:03 | CON ---
DATE: 11/08/2016 HISTORY OF PRESENT ILLNESS: The patient is a 41-year-old male who has no significant past m edical history. Nonsmoker. 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 The patient underwent open reduction, internal fixation yesterday and today on the floor was noted to have rapid atrial fibrillation. The patient did experience palpitati on, racing of the heart as heart feeling. The patient denies any chest pain. The patient is unaware of any prior cardiac history. The patient was transferred to telemetry and started on Cardizem as w ell as digoxin. MEDICATIONS: The patient in on____ morphine pump, patient on Cardizem infusion on 10 mg per hour, wh ich is being temporarily withheld for his chest CT scan. He is on Lovenox at 40 mg once a day, hanny l saline 100 mL an hour. PHYSICAL EXAMINATION: GENERAL: The patient is a middle-aged male who does not appear to be in any distress. VITAL SIGNS: Blood pressure 114/64, heart rate 105, temperature 98.4, respiration 18. HEENT: Normocephalic. NECK: No JVD. CHEST: Clear. HEART: S1, S2 regular. EXTREMITIES: No right leg edema. LABORATORY DATA: SMA-7: Sodium 143, potassium 3.7, chloride 103, CO2 23, glucose 147, BUN 9, creati nine 0.7. TSH is 0.39 slightly below normal, free T4 is within normal limits. PT, PTT within normal limits. CBC: WBC 20.7, hemoglobin 14.6, hematocrit 43.1, platelet count 281,000. EKG revealed atrial fibrillation with rapid ventricular response at a rate of 176, nonspecific ST-T w ave changes. Echocardiography study revealed borderline LVH with normal systolic function. ASSESSMENT: 1. Status post open reduction, internal fixation of a comminuted left calcaneus fracture. 2. New onset atrial fibrillation. 3. Rule out pulmonary embolus. 4. Rule out fat embolus. RECOMMENDATIONS: Resume IV Cardizem and change Lovenox to therapeutic regimen if approved by the [facility]. I will follow both CT angio of the chest as well as venous Doppler of the lower extremity resu lts. Carlos A Arnold MD cc: [id number] TT: 11/08/2016 19:01:53 Confirmation # [id number] Dictation # [id number] jn
--- NOTE | 2016-11-08 23:32 | US ---
EXAM: US Duplex Bilateral Lower Extremity Veins CLINICAL HISTORY: 41 years old, male; Pain; Arm; Bilateral; Prior surgery; Surgery date: Post-operative (0-2 days); Surgery type: Lt leg calcaneal fracture; Additional info: R/O dvt TECHNIQUE: Real-time ultrasound scan of the veins of the bilateral lower extremities with color Doppler flow, spectral waveform analysis and compression. COMPARISON: No relevant prior studies available. FINDINGS: Right deep veins: Normal color and spectral Doppler flow. Normal compressibility. No deep vein thrombosis from common femoral to popliteal vein. Right superficial veins: Unremarkable. Left deep veins: Normal color and spectral Doppler flow. Normal compressibility. No deep vein thrombosis from common femoral to popliteal vein. Nonvisualization of LEFT calf veins due to overlying bandage. Left superficial veins: Unremarkable. Soft tissues: No popliteal cyst. IMPRESSION: 1. No evidence of DVT within the lower extremities. 2. Incidental/non-acute findings are described above.
[2016-11-09] MEDS: Enoxaparin 80 mg Syringe SC SCH ×2 (00:11→09:50)
[2016-11-09] MEDS: Oxycodone/Acetaminophen 5/325 mg Tab PO PRN ×3 (01:20→21:05)
--- NOTE | 2016-11-09 05:21 | CP.PCM.PN ---
Subjective - Date & Time of Evaluation Date of Evaluation: 11/09/16 Time of Evaluation: 00:05 - Subjective Subjective: Placed new pain meds as PHYSICIANS ASSISTANT pump Case d/w hospitalist Pain not well controlled w morphine, but feels improved control w dilaudid Continuing to monitor rate & rhythm, Afib 90s-110s Therapeutic Lovenox, as per cardio Troponin (2nd): 0.0150 Echo: LV borderline concentric hypertrophy, normal EF CTA: Streaky atelectatic changes likely at each lung base. No consolidation. and no pleural effusions. No filling defects suspicious for PE are seen. No CT evidence of aortic dissection nor leakage. No aortic aneurysm is appreciated. f/u B/L LE U/S, as per Cardio f/u 3rd Troponin
[2016-11-09 06:25] LABS: HEMATOCRIT 41.9 % (35.0-51.0); MEAN CELL VOLUME 91.7 fl (80.0-94.0); MEAN CORPUSCULAR HEMOGLOBIN 30.5 pg (27.0-31.0); MEAN CORPUSCULAR HGB CONC 33.3 g/dL (33.0-37.0); RED CELL DISTRIBUTION WIDTH 13.1 % (11.5-14.5)
[2016-11-09 06:36] LABS: BLOOD UREA NITROGEN 7 mg/dl (9-20); CALCIUM 8.6 mg/dL (8.4-10.2); CARBON DIOXIDE 27 mmol/L (22-30); CHLORIDE 102 mmol/L (98-107); CHOLESTEROL 163 mg/dL (0-199); GFR AFRICAN-AMERICAN > 60; GLUCOSE,RANDOM 106 mg/dL (75-110); POTASSIUM 3.6 MMOL/L (3.6-5.0); SODIUM 141 mmol/l (132-148)
--- NOTE | 2016-11-09 09:42 | CT ---
PROCEDURE: CT Chest with contrast (Pulmonary Angiogram) HISTORY: new onset afib/tachy COMPARISON: None available. TECHNIQUE: Axial computed tomography images were obtained of the chest in the pulmonary arterial phase of enhancement. Coronal and sagittal reformatted images were created and reviewed. Maximum intensity projection (MIP) reconstructed images in the following planes: Axial Intravenous contrast dose: 90 cc Visipaque 320 Mean Hounsfield unit values in the main pulmonary artery: 225.91 Radiation dose: Total exam DLP = 401.61 mGy-cm. This CT exam was performed using one or more of the following dose reduction techniques: Automated exposure control, adjustment of the mA and/or kV according to patient size, and/or use of iterative reconstruction technique. FINDINGS: PULMONARY ARTERIES: Unremarkable. No pulmonary embolism. AORTA: No acute findings. No thoracic aortic aneurysm. LUNGS: Dependent basilar atelectasis/ infiltrate subsegmental and symmetrical affecting both lower lobes. PLEURAL SPACES: Unremarkable. No effusion or pneuomothorax. HEART: Unremarkable. No cardiomegaly. No significant pericardial effusion. LYMPH NODES: No lymphadenopathy. BONES, CHEST WALL: Unremarkable. No fracture or destructive lesion OTHER FINDINGS: Unremarkable. IMPRESSION: Negative study for pulmonary embolism. Atelectatic changes both lung bases. Concordant results (preliminary interpretation) provided by [employer]. Procedure Completed: 18:33. Preliminary ([facility]Rad) Report: Dictated and Authenticated: 19:23. Final Interpretation: 09:40. November 09, 2016.
--- NOTE | 2016-11-09 10:01 | CP.PCM.PN ---
Subjective - Date & Time of Evaluation Date of Evaluation: 11/09/16 Time of Evaluation: 10:01 - Subjective Subjective: pt seen and examined at bedside. NAEO. Pt lying in bed comfortably, NAD. Complaining of uncontrolled left lower extremity pain that he feels is not controlled with medications. Describes as 8/10 and constant. No other complaints. Reports feeling well overall. Denies fever/chills, headaches, changes in vision, CP/SOB/palpitations, N/V/D/C, diaphoresis, numbness/tingling/ cold extremity. Objective - Vital Signs/Intake and Output Vital Signs (last 24 hours): Temp Pulse Resp BP Pulse Ox 99 F 83 18 117/69 95 11/09/16 08:00 11/09/16 08:00 11/09/16 08:00 11/09/16 08:00 11/09/16 08:00 - Medications Medications: Current Medications Enoxaparin Sodium (Lovenox) 70 mg SC Q12 ESTEFANY PRN Reason: Protocol Last Admin: 11/09/16 09:50 Dose: 70 mg Hydromorphone HCl (Dilaudid) 1 mg IVP Q4 PRN PRN Reason: Pain, severe (8-10) Last Admin: 11/09/16 09:46 Dose: 1 mg Dextrose/Sodium Chloride (Dextrose 5%-0.45% Ns 500 Ml) 500 mls @ 100 mls/hr IV .Q5H [facility] Stop: 11/09/16 13:46 Last Admin: 11/09/16 06:28 Dose: 100 mls/hr Diltiazem HCl 125 mg/ Sodium (Chloride) 125 mls @ 10 mls/hr IV .[id number] ONE; 10 MG/HR PRN Reason: Protocol Stop: 11/09/16 13:55 Last Admin: 11/09/16 01:34 Dose: 10 mls/hr Ibuprofen (Motrin Tab) 600 mg PO Q6 PRN PRN Reason: Pain, Mild (1-3) Ondansetron HCl (Zofran Inj) 4 mg IVP Q6 PRN PRN Reason: Nausea/Vomiting Last Admin: 11/08/16 09:36 Dose: 4 mg Oxycodone/Acetaminophen (Percocet 5/325 Mg Tab) 1 tab PO Q6 PRN PRN Reason: Pain, moderate (4-7) Stop: 11/09/16 16:27 Last Admin: 11/09/16 01:20 Dose: 1 tab - Labs Labs: 11/09/16 05:57 11/09/16 05:57 PT 10.5 SECONDS (9.6-11.2) 11/06/16 14:53 INR 1.01 (0.92-1.08) 11/06/16 14:53 APTT 25.7 SECONDS (23.3-32.5) 11/06/16 14:53 - Constitutional Appears: Non-toxic, No Acute Distress - ENT Exam ENT Exam: Mucous Membranes Moist - Respiratory Exam Respiratory Exam: Clear to Ausculation Bilateral, NORMAL BREATHING PATTERN. absent: Rales, Rhonchi, Wheezes - Cardiovascular Exam Cardiovascular Exam: Tachycardia, REGULAR RHYTHM, RRR, +S1, +S2. absent: JVD, Murmur - GI/Abdominal Exam GI & Abdominal Exam: Soft, Normal Bowel Sounds. absent: Distended, Firm, Guarding, Rigid, Tenderness - Extremities Exam Extremities Exam: Tenderness. absent: Calf Tenderness, Pedal Edema Additional comments: left leg elevated and splinted. Right DP 2+ left popliteal pulse: 2+ left toes NV intact - Neurological Exam Neurological Exam: Alert, Awake, CN II-XII Intact, Oriented x3 - Psychiatric Exam Psychiatric exam: Normal Affect, Normal Mood - Skin Skin Exam: Dry, Intact, Normal Color, Warm. absent: Cyanosis, Diaphoretic Assessment and Plan - Assessment and Plan (Free Text) Assessment: 41 y/o male with an otherwise unremarkable PMHx, admitted for communited calcaneal fracture, s/p left calcaneal ORIF POD#2. Plan: (1) Calcaneal fracture s/p left calcaneal ORIF POD #2 -IVF LR 125 mL/hr -Podiatry consulted, recommendations appreciated -CT: Comminuted fracture of the calcaneus. -CXR: No active disease -CBC: 15.0>14.0/41.9<283 -follow up ankle x-ray -MS Contin Q12 scheduled dosage -Percocet PO Q6 PRN -PT/OT (2) New Onset Atrial Fibrillation -returned to sinus rhythm at 7:30 this morning -Dr. Arnold on board, following pt, awaiting recommendations for once Cardizem drip expires. -HR stabilizing, 80s-90s -Labs: wnl -TSH: 0.39, T4: 0.93 -CT Angio: no evidence of PE -B/L LE Doppler: no sign of DVT in right leg, poor visualized LE due to brace. -Follow up Free T3 to rule out Thyrotoxicosis/subclinical hyperthyroidism (3) FEN - regular diet - zofran Q6h prn for nausea (4) DVT prophylaxis - SCD - Therapeutic Lovenox 70 mg BID SC
--- NOTE | 2016-11-09 11:09 | CP.PCM.PN ---
Subjective - Date & Time of Evaluation Date of Evaluation: 11/09/16 Time of Evaluation: 11:05 - Subjective Subjective: 41 year old male was seen resting comfortably at bedside 2 days s/p left calceaneal ORIF. Patient is AAOx3, NAD. Dressing is clean, dry, intact to left lower extremity. Patient denies any acute events overnight. 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 Patient admits to dizziness , but denies nausea,fever,vomiting, shortness of breath, chest pain. He admits to having bm yesterday. Objective - Vital Signs/Intake and Output Vital Signs (last 24 hours): Temp Pulse Resp BP Pulse Ox 99 F 83 18 117/69 95 11/09/16 08:00 11/09/16 08:00 11/09/16 08:00 11/09/16 08:00 11/09/16 08:00 - Medications Medications: Current Medications Enoxaparin Sodium (Lovenox) 70 mg SC Q12 ESTEFANY PRN Reason: Protocol Last Admin: 11/09/16 09:50 Dose: 70 mg Hydromorphone HCl (Dilaudid) 1 mg IVP Q4 PRN PRN Reason: Pain, severe (8-10) Last Admin: 11/09/16 09:46 Dose: 1 mg Dextrose/Sodium Chloride (Dextrose 5%-0.45% Ns 500 Ml) 500 mls @ 100 mls/hr IV .Q5H ESTEFANY Stop: 11/09/16 13:46 Last Admin: 11/09/16 06:28 Dose: 100 mls/hr Diltiazem HCl 125 mg/ Sodium (Chloride) 125 mls @ 10 mls/hr IV .[id number] ONE; 10 MG/HR PRN Reason: Protocol Stop: 11/09/16 13:55 Last Admin: 11/09/16 01:34 Dose: 10 mls/hr Ibuprofen (Motrin Tab) 600 mg PO Q6 PRN PRN Reason: Pain, Mild (1-3) Ondansetron HCl (Zofran Inj) 4 mg IVP Q6 PRN PRN Reason: Nausea/Vomiting Last Admin: 11/08/16 09:36 Dose: 4 mg Oxycodone/Acetaminophen (Percocet 5/325 Mg Tab) 1 tab PO Q6 PRN PRN Reason: Pain, moderate (4-7) Stop: 11/09/16 16:27 Last Admin: 11/09/16 01:20 Dose: 1 tab - Labs Labs: 11/09/16 05:57 11/09/16 05:57 PT 10.5 SECONDS (9.6-11.2) 11/06/16 14:53 INR 1.01 (0.92-1.08) 11/06/16 14:53 APTT 25.7 SECONDS (23.3-32.5) 11/06/16 14:53 - Constitutional Appears: Well, Non-toxic, No Acute Distress - Extremities Exam Additional comments: CFT < 3 seconds to all digits on the left Posterior splint clean, dry, intact to left lower extremity - Neurological Exam Neurological Exam: Alert, Awake, Oriented x3 - Psychiatric Exam Psychiatric exam: Normal Affect, Normal Mood Assessment and Plan - Assessment and Plan (Free Text) Assessment: 41 year old male 2 days s/p left calcaneal ORIF Plan: Patient examined and evaluate Chart and vitals reviewed, afebrile, WBC 15.0 (down from 20.7) Discussed in detail with attending, Dr. Cordero Continue pain medication per primary team- switched to dilaudid from CLOTH WINDING SUPERVISOR pump Continue incentive spirometry continue ice and elevation of LLE Rx in chart for keflex and percocet for when patient is discharged Dressing left clean, dry, intact US negative for DVT b/l LE chest CT= negative for PE, atelectasis changes in both lung bases Podiatry will continue to follow patient while in house
[2016-11-09] MEDS: Morphine 30 mg SR Tab PO SCH ×2 (14:33→21:08)
--- NOTE | 2016-11-09 15:02 | PN ---
DATE: 11/09/2016 SUBJECTIVE: The patient denies chest pain. He is experiencing pain in the left heel at the surgical site. Currently, he converted to sinus rhythm. PHYSICAL EXAMINATION: VITAL SIGNS: Blood pressure 121/76, heart rate 83, temperature 98.7, respirations 18. HEENT: Normocephalic. NECK: No JVD. CHEST: Clear. HEART: S1, S2 regular. EXTREMITIES: No edema. LABORATORIES: Venous Doppler of lower extremity. No evidence of DVT. CT angio is negative for pulm onary embolism. ASSESSMENT: 1. Status post open reduction internal fixation of left calcaneus fracture. 2. Postoperative atrial fibrillation. The patient currently converted to sinus rhythm. RECOMMENDATIONS: Resume therapeutic Lovenox ____ by the orthopedic surgeon for now. Discontinue IV Cardizem and start Cardizem at 30 mg orally q. 8 hours. Carlos A Arnold MD cc: [id number] TT: 11/09/2016 15:01:11 Confirmation # [id number] Dictation # [id number]
[2016-11-09] MEDS ORDERED: Docusate-Senna 50 mg-8.6 mg Tab PO SCH (22:00)
[2016-11-10] MEDS: Oxycodone/Acetaminophen 5/325 mg Tab PO PRN ×2 (00:57→11:11)
[2016-11-10] MEDS ORDERED: Enoxaparin 40 mg Syringe SC SCH (09:00)
[2016-11-10] MEDS: Morphine 30 mg SR Tab PO SCH (09:11)
--- NOTE | 2016-11-10 11:15 | CP.PCM.PN ---
Subjective - Date & Time of Evaluation Date of Evaluation: 11/10/16 Time of Evaluation: 11:13 - Subjective Subjective: 41 year old male was seen resting comfortably at bedside 3 days s/p left calceaneal ORIF. Patient is AAOx3, NAD. Dressing is clean, dry, intact to left lower extremity. Patient denies any acute events overnight. Patient denies nausea,fever,vomiting,dizziness shortness of breath, chest pain. He states that he is getting medication for the constipation. Objective - Vital Signs/Intake and Output Vital Signs (last 24 hours): Temp Pulse Resp BP Pulse Ox 98.2 F 85 18 118/73 97 11/10/16 08:00 11/10/16 09:09 11/10/16 08:00 11/10/16 09:09 11/10/16 08:00 - Medications Medications: Current Medications Diltiazem HCl (Cardizem) 30 mg PO TID [facility] Last Admin: 11/10/16 09:09 Dose: 30 mg Docusate Sodium (Colace) 200 mg PO DAILY [facility] Last Admin: 11/10/16 09:10 Dose: 200 mg Enoxaparin Sodium (Lovenox) 40 mg SC DAILY [facility] PRN Reason: Protocol Last Admin: 11/10/16 09:10 Dose: 40 mg Ibuprofen (Motrin Tab) 600 mg PO Q6 PRN PRN Reason: Pain, Mild (1-3) Morphine Sulfate (Morphine Extended Release Tab) 30 mg PO Q12 [facility] Last Admin: 11/10/16 09:11 Dose: Not Given Ondansetron HCl (Zofran Inj) 4 mg IVP Q6 PRN PRN Reason: Nausea/Vomiting Last Admin: 11/08/16 09:36 Dose: 4 mg Oxycodone/Acetaminophen (Percocet 5/325 Mg Tab) 2 tab PO Q4 PRN PRN Reason: Pain, moderate (4-7) Stop: 11/12/16 13:01 Last Admin: 11/10/16 11:11 Dose: 2 tab Senna/Docusate Sodium (Senokot S 50 Mg-8.6 Mg) 2 tab PO HS [facility] Last Admin: 11/10/16 00:15 Dose: Not Given - Labs Labs: 11/09/16 05:57 11/09/16 05:57 PT 10.5 SECONDS (9.6-11.2) 11/06/16 14:53 INR 1.01 (0.92-1.08) 11/06/16 14:53 APTT 25.7 SECONDS (23.3-32.5) 11/06/16 14:53 - Constitutional Appears: Well, Non-toxic, No Acute Distress - Extremities Exam Additional comments: CFT < 3 seconds to all digits on the left Posterior splint clean, dry, intact to left lower extremity - Neurological Exam Neurological Exam: Alert, Awake, Oriented x3 Assessment and Plan - Assessment and Plan (Free Text) Assessment: 41 year old male 3 days s/p left calcaneal ORIF Plan: Patient examined and evaluate Chart and vitals reviewed, afebrile Discussed in detail with attending, Dr. Cordero Continue pain medication per primary team Continue incentive spirometry continue ice and elevation of LLE Rx in chart for keflex and percocet for when patient is discharged Dressing left clean, dry, intact US negative for DVT b/l LE chest CT= negative for PE, atelectasis changes in both lung bases patient is stable from podiatry standpoint and can follow up in podiatry clinic for post-op check Podiatry will continue to follow patient while in house
--- NOTE | 2016-11-10 12:11 | CP.PCM.DIS ---
Provider - Provider Date of Admission: 11/06/16 14:52 Attending physician: Sonja Valentine MD Time Spent in preparation of Discharge (in minutes): 30 Diagnosis - Discharge Diagnosis (1) Calcaneal fracture Status: Acute Hospital Course - Lab Results Lab Results: Most Recent Lab Values WBC 15.0 K/uL (4.8-10.8) H 11/09/16 05:57 RBC 4.57 Mil/uL (4.40-5.90) 11/09/16 05:57 Hgb 14.0 g/dL (12.0-18.0) 11/09/16 05:57 Hct 41.9 % (35.0-51.0) 11/09/16 05:57 MCV 91.7 fl (80.0-94.0) 11/09/16 05:57 MCH 30.5 pg (27.0-31.0) 11/09/16 05:57 MCHC 33.3 g/dL (33.0-37.0) 11/09/16 05:57 RDW 13.1 % (11.5-14.5) 11/09/16 05:57 Plt Count 283 K/uL (130-400) 11/09/16 05:57 MPV 9.0 fl (7.2-11.7) 11/08/16 12:50 Neut % (Auto) 81.3 % (50.0-75.0) H 11/08/16 12:50 Lymph % (Auto) 11.3 % (20.0-40.0) L 11/08/16 12:50 [place] % (Auto) 6.6 % (0.0-10.0) 11/08/16 12:50 Eos % (Auto) 0.1 % (0.0-4.0) 11/08/16 12:50 Baso % (Auto) 0.7 % (0.0-2.0) 11/08/16 12:50 Neut # 16.8 K/uL (1.8-7.0) H 11/08/16 12:50 Lymph # 2.3 K/uL (1.0-4.3) 11/08/16 12:50 [place] # 1.4 K/uL (0.0-0.8) H 11/08/16 12:50 Eos # 0.0 K/uL (0.0-0.7) 11/08/16 12:50 Baso # 0.1 K/uL (0.0-0.2) 11/08/16 12:50 PT 10.5 SECONDS (9.6-11.2) 11/06/16 14:53 INR 1.01 (0.92-1.08) 11/06/16 14:53 APTT 25.7 SECONDS (23.3-32.5) 11/06/16 14:53 Sodium 141 mmol/l (132-148) 11/09/16 05:57 Potassium 3.6 MMOL/L (3.6-5.0) 11/09/16 05:57 Chloride 102 mmol/L (98-107) 11/09/16 05:57 Carbon Dioxide 27 mmol/L (22-30) 11/09/16 05:57 Anion Gap 15 (10-20) 11/09/16 05:57 BUN 7 mg/dl (9-20) L 11/09/16 05:57 Creatinine 0.8 mg/dL (0.8-1.5) 11/09/16 05:57 Est GFR ( Amer) > 60 11/09/16 05:57 Est GFR (Non-Af Amer) > 60 11/09/16 05:57 POC Glucose (mg/dL) 145 mg/dL (65-110) H 11/08/16 12:34 Random Glucose 106 mg/dL (75-110) 11/09/16 05:57 Lactic Acid 3.6 MMOL/L (0.7-2.1) H 11/08/16 12:50 Calcium 8.6 mg/dL (8.4-10.2) 11/09/16 05:57 Phosphorus 2.8 mg/dl (2.5-4.5) 11/08/16 12:50 Magnesium 2.3 MG/DL (1.6-2.3) 11/08/16 12:50 Total Bilirubin 0.6 mg/dl (0.2-1.3) 11/08/16 12:50 AST 32 U/L (17-59) 11/08/16 12:50 ALT 40 U/L (21-72) 11/08/16 12:50 Alkaline Phosphatase 76 U/L (38-126) 11/08/16 12:50 Troponin I < 0.0120 ng/mL (0.00-0.120) 11/09/16 05:57 Total Protein 7.5 G/DL (6.3-8.2) 11/08/16 12:50 Albumin 4.1 g/dL (3.5-5.0) 11/08/16 12:50 Globulin 3.4 gm/dL (2.2-3.9) 11/08/16 12:50 Albumin/Globulin Ratio 1.2 (1.0-2.1) 11/08/16 12:50 Triglycerides 134 mg/DL (0-149) 11/09/16 05:57 Cholesterol 163 mg/dL (0-199) 11/09/16 05:57 LDL Cholesterol Direct 102 mg/dL (0-129) 11/09/16 05:57 HDL Cholesterol 29 MG/DL (30-70) L 11/09/16 05:57 25-OH Vitamin D Total < 12.8 NG/ML (30.0-100.0) L 11/08/16 06:43 Free T4 0.93 ng/dL (0.78-2.19) 11/08/16 13:26 TSH 3rd Generation 0.39 mIU/ML (0.46-4.68) L 11/08/16 13:26 Urine Opiates Screen Positive (NEGATIVE) H 11/09/16 01:15 Urine Methadone Screen Negative (NEGATIVE) 11/09/16 01:15 Ur Barbiturates Screen Negative (NEGATIVE) 11/09/16 01:15 Ur Phencyclidine Scrn Negative (NEGATIVE) 11/09/16 01:15 Ur Amphetamines Screen Negative (NEGATIVE) 11/09/16 01:15 U Benzodiazepines Scrn Negative (NEGATIVE) 11/09/16 01:15 U Oth Cocaine Metabols Negative (NEGATIVE) 11/09/16 01:15 U Cannabinoids Screen Negative (NEGATIVE) 11/09/16 01:15 - Hospital Course Hospital Course: The patient is a 41 y/o man w/ no significant pmhx presented to ED after he fell while walking on sidewalk and twisted his left foot. The patient was seen by podiatry and prepared for surgery. The patient is s/p ORIF left calcaneal displaced and communited fracture post-op day #3. The patient tolerated the procedure well with no complications, minimal blood loss, and recovering appropriately. However on post-op day #1 the patient had a rapid response called due to tachycardia of 160s found incidentally during noon vitals check. The patient was found to have atrial fibrillation found on EKG. The patient was put on cardizem pump and then switched to PO after resolution of tachycardia. Pulmonary embolism was ruled out with CT angio of the chest and echocardiogram. Repeat labs drawn were all WNL. The patient was seen by cardiology and counseled that the patient does not require cardizem on discharge as afib was paroxysmal and has resolved. The patient is to follow up with podiatry Friday11/15/2016. The patient has been seen, examined, and deemed medically fit for discharge home. The patient will be discharged home on colace and senokot to help with constipation. Podiatry has placed a script for percocet PO for pain prn. - Date & Time of H&P Date of H&P: 11/06/16 Time of H&P: 16:34 Discharge Exam - Head Exam Head Exam: ATRAUMATIC, NORMOCEPHALIC - ENT Exam ENT Exam: Mucous Membranes Moist - Respiratory Exam Respiratory Exam: Clear to PA & Lateral. absent: Accessory Muscle Use, Chest Wall Tenderness, Decreased Breath Sounds, Prolonged Expiratory Phase, Rales, Rhonchi, Wheezes, Respiratory Distress, Stridor - Cardiovascular Exam Cardiovascular Exam: REGULAR RHYTHM. absent: Tachycardia - GI/Abdominal Exam GI & Abdominal Exam: Normal Bowel Sounds, Soft. absent: Distended, Tenderness - Extremities Exam Additional comments: capillary refill time <3 seconds to all digits of left foot left leg in posterior splint clean, dry, and intact - Neurological Exam Neurological exam: Alert, CN II-XII Intact, Oriented x3 - Skin Skin Exam: Dry, Intact, Normal Color, Warm Discharge Plan - Discharge Medications Prescriptions: Docusate [Colace] 100 mg PO DAILY #10 cap oxyCODONE/Acetaminophen [Percocet 5/325 mg Tab] 1 tab PO Q6 PRN #30 tab PRN Reason: Pain, Severe (8-10) Docusate Sodium/Sennosides A [Senokot S 50 MG-8.6 MG] 2 tab PO HS #20 tab - Follow Up Plan Condition: IMPROVED Disposition: HOME/ ROUTINE Referrals: Podiatry Clinic [Outside]
[2016-11-10 12:48] VITALS: BP 124/80; PULSE 91; RESP 16; TEMP 99; O2SAT 96
--- NOTE | 2016-11-11 10:25 | OP ---
PROCEDURE DATE: 11/07/2016 SURGEON: Everardo Cordero DPM SHANK CARRIER: Domingo Ramos DPM. SECOND SHANK CARRIER: Ramona Joaquin DPM THIRD SHANK CARRIER: Mary Simmons DPM FOURTH SHANK CARRIER: Deniz Peña DPM BANKRUPTCY JUDGE: MD Natalia ANESTHESIA: General anesthesia. PREOPERATIVE DIAGNOSES: Left foot displaced and comminuted joint depression calcaneal fracture. POSTOPERATIVE DIAGNOSES: Left foot displaced and comminuted joint depression calcaneal fracture. PROCEDURE: Open reduction and internal fixation of left calcaneal, joint depression, fracture. INDICATIONS: The patient is a 41-year-old male who sustained a calcaneal fracture 2 days prior to the surgery after twisting his foot as he stepped into a grate. The patient has been nonweightbearing since the injury and is now requesting surgical intervention. The patient signed the consent after careful explanation of all risks, benefits, complications and alternatives to the surgical procedure. No guarantees were given nor implied. PREPARATION: The patient was brought into the operating room and placed on the operating room table in the supine position. After induction of general anesthesia, the patient was maneuvered into a lateral decubitus position making sure that all pressure points were properly offloaded. At this time, a left thigh tourniquet was applied. Next, the patient's left lower extremity was then prepped and draped in the usual sterile manner. At this time, the patient' s left lower extremity was exsanguinated with an Esmarch and the pneumatic thigh tourniquet was inflated to 350 mmHg and the procedure began. PROCEDURE #1: Open reduction and internal fixation of left joint depression calcaneal fracture. Attention was directed to the lateral aspect of the patient's left heel. All pertinent anatomic landmarks were marked out. Utilizing a #15 blade, a L-type incision was created with the vertical arm being placed 1 cm anterior to the Achilles tendon and the horizontal arm following the posterior aspect of the patient's calcaneus and curving distally to follow the natural inclination of the calcaneal anterior process. Utilizing sharp and blunt dissection the incision was carried down to bone with care being taken to identify and retract all vital neurovascular structures. All bleeders were cauterized and ligated as necessary. At this time, utilizing a #15 blade the soft tissue was retracted as one entire subperiosteal flap containing the neurovascular structures as well as the peroneal tendons. This soft tissue flap was carefully retracted anteriorly exposing the entire body of the calcaneus along with the multiple fracture fragments. At this time, the fracture fragment involving the posterior facet was identified. Utilizing a K-wire from the Synthes set, a K- wire was driven from just plantar to the posterior facet and driven in the direction of the sustentaculum claudio. Proper placement of the K-wire was verified under fluoroscopy. Next the K-wire was drilled utilizing the proper drill bit and then a 28 mm x 3.5 cannulated Synthes screw was placed across the wire and again proper placement of the screw itself was verified. Next, utilizing a parallel guidewire, a second guidewire was driven parallel to the screw underneath the posterior facet and then following the same principles and techniques, a 30 mm x 3.5 mm cannulated screw was driven across the second parallel K-wire. Proper placement of the screws was verified on both a Riuz- Beath and lateral view. Next, the K-wires were removed and passed from the operative field. Attention was then directed to the posterior, superior aspect of the patient's calcaneus where utilizing a #15 blade, a 1 cm linear longitudinal incision was created over the superior central aspect of the patient's calcaneus. Utilizing a [place] elevator, all soft tissue was freed from the posterior aspect of the calcaneus and at this time a T-handle was driven into the posterior aspect of the calcaneus to allow for reduction of the posterior tuber. The posterior tuber was distracted and everted to bring the calcaneus out of varus and it was also brought more plantarly to allow for correction of the calcaneal inclination angle. At this time, with the posterior tubercle being held in a reduced position, a 2.7 mm VA-LCP calcaneal plate was placed on the lateral aspect of the calcaneus. At this time, it was temporarily fixated utilizing a BB-Vaibhav and then all holes were filled utilizing the 2.7 VA locking screws. At this time, the T-handle was removed and the fixation hardware and the correction were visualized under fluoroscopy. Again the calcaneal inclination angle was noted to have been restored as well as the length of the calcaneus was noted to have been restored and the heel was brought from varus into a slightly valgus position. Proper placement of the hardware was also verified. At this time, the incision site was flushed with copious amounts of normal sterile saline. The deep tissue was reapproximated and coapted utilizing 2-0 Vicryl and 3-0 Vicryl and the skin was reapproximated and coapted utilizing 4-0 nylon in simple and horizontal mattress sutures. The incision site was dressed with Xeroform and DSD, and the patient was then placed in a Luevano compression with a well-padded posterior splint. POSTOPERATIVE CONDITION: The patient tolerated the procedure and anesthesia well and was escorted to recovery with all vital signs stable and neurovascular status intact to the left lower extremity. It is to be noted that the patient will be readmitted to [facility] floors and will be followed by podiatry. The patient will be nonweightbearing to the left lower extremity with a posterior splint and crutches. Ramona Joaquin DPM Everardo Cordero DPM cc: [id number] TT: 11/08/2016 18:48:40 roslyn ADRIAN
== END 2016-11-10 15:00 | disposition home or self-care (01) | DRG 225 ==
LOC: H.ER 09:57 → H.EROBSV 13:22 → OBSVTOIN 14:52 → H.ERHOLD 15:02 → H.MEDSURG1 16:09 → H.TEL 11-08 13:44
PROVIDERS: ADMIT Family Medicine Geriatric Medicine; ATTEND Family Medicine Geriatric Medicine
PROC: 0QSM04Z Reposition Left Tarsal with Internal Fixation Device, Open Approach (ICD-10-PCS; principal; 2016-11-07 17:30)
DX: S92.002A Unspecified fracture of left calcaneus, initial encounter for closed fracture (principal); I47.1 Supraventricular tachycardia; I97.89 Other postprocedural complications and disorders of the circulatory system, not elsewhere classified; I48.91 Unspecified atrial fibrillation; K59.09 Other constipation; W10.1XXA Fall (on)(from) sidewalk curb, initial encounter; F17.200 Nicotine dependence, unspecified, uncomplicated; Y83.8 Other surgical procedures as the cause of abnormal reaction of the patient, or of later complication, without mention of misadventure at the time of the procedure; Y93.01 Activity, walking, marching and hiking; Y92.480 Sidewalk as the place of occurrence of the external cause

== ENCOUNTER 2017-04-01 00:48 | Emergency (ER) | payer SELFPAY ==
[2017-04-01 00:49] VITALS: PULSE 130; BMI 25.7
[2017-04-01 01:15] VITALS: BP 139/80; PULSE 104; RESP 18; TEMP 98.7; O2SAT 96
--- NOTE | 2017-04-01 01:54 | ED PDOC ---
HPI: Trauma/Fall - HPI Time Seen by Provider: 04/01/17 01:00 Chief Complaint (Nursing): Trauma Chief Complaint (Provider): Fall History Per: Patient History/Exam Limitations: no limitations Onset/Duration Of Symptoms: Hrs (earlier today) Injury Occurred (Timing): Hours Ago: (earlier today) Location Of Injury: Left: Head, Posterior: Head Associated Symptoms: LOC Additional Complaint(s): 41 year old male presents to ED with complaints of a head injury status post a fall and has no past medical history. Patient notes that he fell when walking home earlier today, landing on his left side and injuring his head. (+) LOC for unknown period of time and laceration to left ear. (-) neck pain, vomiting, anticoagulant use, limb pain, chest pain, or abdominal pain. Patient notes that he used coffee grounds and sugar to stop the laceration from bleeding. Patient admits to drinking earlier today. PCP: None Past Medical History Reviewed: Historical Data, Nursing Documentation, Vital Signs Vital Signs: Last Vital Signs Temp 98.7 F 04/01/17 01:02 Pulse 104 H 04/01/17 01:02 Resp 18 04/01/17 01:02 BP 139/80 04/01/17 01:02 Pulse Ox 96 04/01/17 02:01 - Medical History PMH: No Chronic Diseases Denies: Diabetes, Hepatitis, HIV, HTN, Seizures, Sexually Transmitted Disease - Surgical History Surgical History: No Surg Hx - Family History Family History: States: No Known Family Hx - Social History Alcohol: Social - Immunization History Hx Tetanus Toxoid Vaccination: Yes Hx Influenza Vaccination: No - Home Medications Home Medications: Ambulatory Orders Medication Instructions Recorded Docusate Sodium/Sennosides A 2 tab PO HS #20 tab 11/10/16 [Senokot S 50 MG-8.6 MG] Docusate [Colace] 100 mg PO DAILY #10 cap 11/10/16 oxyCODONE/Acetaminophen [Percocet 1 tab PO Q6 PRN #30 tab 11/10/16 5/325 mg Tab] Cephalexin [cephalexin] 500 mg PO Q6 #28 cap 04/01/17 - Allergies Allergies/Adverse Reactions: Allergies Allergy/AdvReac Type Severity Reaction Status Date / Time No Known Allergies Allergy Verified 11/06/16 10:13 Review of Systems ROS Statement: Except As Marked, All Systems Reviewed And Found Negative Cardiovascular: Negative for: Chest Pain Gastrointestinal: Negative for: Vomiting, Abdominal Pain Musculoskeletal: Positive for: Other ((+) head pain). Negative for: Neck Pain, Leg Pain Skin: Positive for: Other ((+) laceraton to left ear) Neurological: Positive for: Other ((+) LOC) Physical Exam - Reviewed Nursing Documentation Reviewed: Yes Vital Signs Reviewed: Yes - Physical Exam Appears: Positive for: Non-toxic, No Acute Distress Head Exam: Positive for: NORMOCEPHALIC. Negative for: ATRAUMATIC (moderate swelling to left occipital scalp, no tenderness) Skin: Positive for: Normal Color, Warm, Dry Eye Exam: Positive for: Normal appearance, EOMI, PERRL ENT: Negative for: Normal ENT Inspection (1 cm linear, superficial laceration to posterior left ear. 1 cm superficial laceration to left antihelix) Neck: Positive for: Normal, Painless ROM, Supple Cardiovascular/Chest: Positive for: Regular Rate, Rhythm, Tachycardia Respiratory: Positive for: Normal Breath Sounds. Negative for: Respiratory Distress Gastrointestinal/Abdominal: Positive for: Normal Exam, Soft. Negative for: Tenderness Back: Positive for: Normal Inspection Extremity: Positive for: Normal ROM. Negative for: Deformity Neurologic/Psych: Positive for: Alert, Oriented, Gait (steady). Negative for: Motor/Sensory Deficits, Other ((-) slurred speech) - ECG O2 Sat by Pulse Oximetry: 96 (RA) Pulse Ox Interpretation: Normal Medical Decision Making Medical Decision Makin Initial impression: head injury, ear laceration Initial plan: * CT HEAD * Adacek 0.5mL IM Scribe Attestation: Documented by Clarice Bran acting as a scribe for Kannan Nuñez PA-C. MD Scribe Attestation: All medical record entries made by the Scribe were at my direction and personally dictated by me. I have reviewed the chart and agree that the record accurately reflects my personal performance of the history, physical exam, medical decision making, and the department course for this patient. I have also personally directed, reviewed, and agree with the discharge instructions and disposition. Procedures - Time-Out Type of Procedure: laceration repair Site of Procedure: L parietal scalp; L antehelix Correct Patient (with visual ID + MR# on ID Band): Yes Correct Procedure: Yes PA/Tech: Joaqiun - Laceration/Wound Repair Laceration repair Wound Length (cm): 2 Wound's Depth, Shape: superficial, linear Wound Explored: contaminated (sugar and coffee grounds) Irrigated w/ Saline (ccs): 500 Betadine Prep?: Yes Wound Repaired With: Sutures (ethilon) Suture Size/Type: 6:0, 5:0, proline, nylon Number of Sutures: 3 Layer Closure?: No Wound Complexity: Simple Disposition - Clinical Impression Clinical Impression: Laceration of ear, Head injury - Patient ED Disposition Is Patient to be Admitted: No - Disposition Disposition: Routine/Home Disposition Time: 04:10 Condition: STABLE Additional Instructions: Suture removal in 7 days. Prescriptions: Cephalexin [cephalexin] 500 mg PO Q6 #28 cap Instructions: Laceration (ED), Head Injury (ED) Forms: [employer] (Eritrean) Print Language: MONGOLIAN
--- NOTE | 2017-04-01 03:16 | CT ---
EXAM: CT Head Without Intravenous Contrast CLINICAL HISTORY: 41 years old, male; Injury or trauma; Fall; Initial encounter; Blunt trauma (contusions or hematomas) TECHNIQUE: Axial computed tomography images of the head/brain without intravenous contrast. All CT scans at this facility use one or more dose reduction techniques, viz.: automated exposure control; ma/kV adjustment per patient size (including targeted exams where dose is matched to indication; i.e. head); or iterative reconstruction technique. Coronal and sagittal reformatted images were created and reviewed. COMPARISON: No relevant prior studies available. FINDINGS: Brain: No acute intracranial hemorrhage. No significant white matter disease. No edema. Ventricles: No significant ventriculomegaly. Bones: No acute displaced fracture. Sinuses: Unremarkable as visualized. No acute sinusitis. Mastoid air cells: Unremarkable as visualized. No mastoid effusion. IMPRESSION: No acute intracranial hemorrhage, or suspicious mass effect.
[2017-04-01] MEDS ORDERED: Lidocaine 1% Inj (20ml) ONE (03:51)
[2017-04-01] MEDS ORDERED: Povidone Iodine Oint 10% Foilpak UD ONE (03:51)
== END 2017-04-01 04:25 | disposition home or self-care (01) ==
LOC: H.ER 00:48
DX: S01.312A Laceration without foreign body of left ear, initial encounter (principal); W19.XXXA Unspecified fall, initial encounter; Y93.9 Activity, unspecified; F10.10 Alcohol abuse, uncomplicated

== ENCOUNTER 2017-04-09 17:21 | Emergency (ER) | payer SELFPAY ==
[2017-04-09 17:21] VITALS: PULSE 130; BMI 25.7
[2017-04-09 17:57] VITALS: BP 150/95; PULSE 94; RESP 16; TEMP 98; O2SAT 100
--- NOTE | 2017-04-09 18:20 | ED PDOC ---
HPI: Wound Care - HPI Time Seen by Provider: 04/09/17 18:09 Chief Complaint (Nursing): Suture/Staple Removal Chief Complaint (Provider): 18:00 History Per: Patient (41 y/o male here for suture removal. Has had sutures placed 04/01. Was given antibiotic for prophylaxis.) Past Medical History Reviewed: Historical Data, Nursing Documentation, Vital Signs Vital Signs: Last Vital Signs Temp 98.0 F 04/09/17 17:55 Pulse 94 H 04/09/17 17:55 Resp 16 04/09/17 17:55 BP 150/95 H 04/09/17 17:55 Pulse Ox 100 04/09/17 17:55 - Medical History PMH: Denies: Diabetes, Hepatitis, HIV, HTN, Seizures, Sexually Transmitted Disease - Family History Family History: States: No Known Family Hx - Immunization History Hx Tetanus Toxoid Vaccination: Yes Hx Influenza Vaccination: No - Home Medications Home Medications: Ambulatory Orders Medication Instructions Recorded Docusate Sodium/Sennosides A 2 tab PO HS #20 tab 11/10/16 [Senokot S 50 MG-8.6 MG] Docusate [Colace] 100 mg PO DAILY #10 cap 11/10/16 oxyCODONE/Acetaminophen [Percocet 1 tab PO Q6 PRN #30 tab 11/10/16 5/325 mg Tab] Cephalexin [cephalexin] 500 mg PO Q6 #28 cap 04/01/17 - Allergies Allergies/Adverse Reactions: Allergies Allergy/AdvReac Type Severity Reaction Status Date / Time No Known Allergies Allergy Verified 04/09/17 17:55 Review of Systems ROS Statement: Except As Marked, All Systems Reviewed And Found Negative Physical Exam - Reviewed Nursing Documentation Reviewed: Yes Vital Signs Reviewed: Yes - Physical Exam Appears: Positive for: Well, Non-toxic, No Acute Distress Head Exam: Positive for: ATRAUMATIC, NORMAL INSPECTION, NORMOCEPHALIC Skin: Positive for: Normal Color (healing wound posterior ear and above ear.), Warm Eye Exam: Positive for: EOMI, Normal appearance, PERRL ENT: Positive for: Normal ENT Inspection Neck: Positive for: Normal, Painless ROM Cardiovascular/Chest: Positive for: Regular Rate, Rhythm Respiratory: Positive for: CNT, Normal Breath Sounds Gastrointestinal/Abdominal: Positive for: Normal Exam, Bowel Sounds, Soft Back: Positive for: Normal Inspection Extremity: Positive for: Normal ROM Neurologic/Psych: Positive for: Alert, Oriented - ECG O2 Sat by Pulse Oximetry: 100 - Progress ED Course And Treament: verbal consent prior to procedure suture removed without difficulty. Disposition - Clinical Impression Clinical Impression: Removal of suture - Patient ED Disposition Is Patient to be Admitted: No - Disposition Disposition: Routine/Home Disposition Time: 18:20 Condition: FAIR Instructions: Stitches Removal (ED) Forms: [employer] (Ukrainian)
== END 2017-04-09 18:25 | disposition home or self-care (01) ==
LOC: H.ER 17:21
DX: Z48.02 Encounter for removal of sutures (principal)